=== PATIENT | female | born 1975 | race Caucasian/White ===

== ENCOUNTER 2023-12-02 11:31 | Day surgery (SDC) | payer BC ==
[2023-11-30 12:35] LABS: BASOPHILS % (AUTO) 0.3 % (0.0-2.0); EOSINOPHILS # (AUTO) 0.1 K/uL (0-0.4); EOSINOPHILS % (AUTO) 0.7 % (0.0-4.0); HEMOGLOBIN 12.5 g/dL (12.0-16.0); LYMPHOCYTES # (AUTO) 2.2 K/uL (2.5-16.5); LYMPHOCYTES % (AUTO) 29.3 % (20.5-51.1); MEAN CORPUSCULAR HEMOGLOBIN 27 pg (27-31); MEAN CORPUSCULAR HGB CONC 34 g/dL (33-37); MEAN CORPUSCULAR VOLUME 79.7 fL (80-94); MONOCYTES # (AUTO) 0.4 K/uL (0.8-1.0); MONOCYTES % (AUTO) 5.7 % (1.7-9.3); NEUTROPHILS # (AUTO) 4.9 K/uL (1.8-7.7); PLATELET COUNT (AUTO) 189 K/uL (140-450); RED BLOOD CELL COUNT(AUTO) 4.64 MIL/uL (4.20-5.40); RED CELL DISTRIBUTION WIDTH 15.1 % (11.6-13.7); WHITE BLOOD COUNT (AUTO) 7.7 K/uL (4.8-10.8)
[2023-11-30 12:47] LABS: ALBUMIN 3.5 g/dL (3.4-5.0); ANION GAP 11.5 (8-16); CALCIUM 8.5 mg/dL (8.5-10.1); CARBON DIOXIDE 26.3 mmol/L (21-32); CREATININE 0.7 mg/dL (0.6-1.3); POTASSIUM 3.8 mmol/L (3.5-5.1); TOTAL BILIRUBIN 0.8 mg/dL (0.0-1.0); TOTAL PROTEIN, SERUM 7.3 g/dL (6.4-8.2)
[~2023-12-02] VITALS: Ht 157.5 cm; Wt 83.5 kg
[2023-12-02] MEDS ORDERED: BUPIVACAINE-MPF 0.25% 30 ML VIAL INJ ONE ×2 (12:44→12:58)
[2023-12-02] MEDS ORDERED: HYDROmorphone PFS 2 MG/ML SYR ONE (12:50)
[2023-12-02] MEDS ORDERED: SUCCINYLCHOLINE CHLORIDE 200 MG/10 ML VIAL IVP ONE (12:53)
[2023-12-02] MEDS ORDERED: ROCURONIUM 50 MG/5 ML VIAL IV ONE (12:53)
[2023-12-02] MEDS ORDERED: PROPOFOL 200 MG/20 ML VIAL IV ONE (13:20)
[2023-12-02] MEDS ORDERED: SEVOFLURANE 250 ML BTL INH ONE (13:20)
[2023-12-02] MEDS: ceFAZolin 1,000 MG VIAL ONE (13:31)
[2023-12-02] MEDS ORDERED: LIDOCAINE 2% 100 MG/5 ML SYR IVP ONE (13:34)
[2023-12-02] MEDS ORDERED: ePHEDrine 50 MG/ML VIAL ONE (13:48)
[2023-12-02] MEDS ORDERED: GLYCOPYRROLATE 0.2 MG/ML VIAL ONE (13:59)
[2023-12-02] MEDS ORDERED: ONDANSETRON 4 MG/2 ML VIAL ONE (14:02)
[2023-12-02] MEDS ORDERED: DEXAMETHASONE 4 MG/ML VIAL ONE (14:03)
[2023-12-02] MEDS ORDERED: HYDROcodone/APAP 5/325 MG 1 TAB TAB PO PRN (14:40)
[2023-12-02] MEDS ORDERED: MORPHINE SULFATE 2 MG/ML SYR IVP PRN (14:40)
[2023-12-02] MEDS ORDERED: ONDANSETRON 4 MG/2 ML VIAL IV PRN (14:40)
[2023-12-02] MEDS ORDERED: MORPHINE SULFATE 4 MG/ML SYR IV PRN (14:40)
[2023-12-02] MEDS ORDERED: ACET-8905 PO (14:44)
[2023-12-02] MEDS ORDERED: ONDANSETRON 4 MG/2 ML VIAL IVP PRN (14:50)
[2023-12-02] MEDS ORDERED: HYDROmorphone 1 MG/ML AMP IVP PRN (14:50)
== END 2023-12-02 17:00 | disposition home or self-care (01) ==
LOC: MDS 11:31 → MMU 11:31 → MDS 17:00
PROVIDERS: ATTEND Surgery
DX: N64.89 Other specified disorders of breast (principal); N60.12 Diffuse cystic mastopathy of left breast; Z79.899 Other long term (current) drug therapy; Z98.890 Other specified postprocedural states
CPT/HCPCS: 19120; 36415; 71045; 80053; 85025; 93005; J0330; J0690; J1100; J1170; J2001; J2405; J2704; J3490; J7060